=== PATIENT | male | born 1965 | race Caucasian/White ===

== ENCOUNTER 2017-03-22 10:33 | Emergency (ER) | payer OTHER, MEDICAID ==
[~2017-03-22] VITALS: Ht 182.9 cm; Wt 90.0 kg
[2017-03-22] MEDS ORDERED: SODIUM CHLORIDE 0.9% 1,000 ML IV ONE (11:03)
[2017-03-22] MEDS ORDERED: FAMOTIDINE 20MG/2ML VIAL IV ONE (11:15)
[2017-03-22] MEDS ORDERED: ONDANSETRON HCL 4MG/2ML VIAL IV ONE (11:15)
[2017-03-22 11:27] LABS: BASOPHILS % 0.5 % (0.0-2.0); EOSINOPHILS % 0.2 % (0.0-5.0); HEMATOCRIT. 44.6 % (42.0-52.0); HEMOGLOBIN. 15.5 g/dL (14.0-18.0); MEAN CORPUSCULAR HEMOGLOBIN 30.5 pg (28.0-32.0); MEAN CORPUSCULAR VOLUME 87.8 fL (80.0-94.0); MEAN PLATELET VOLUME 7.2 fl (7.4-10.4); MONOCYTES % 7.1 % (2.0-8.0); NEUTROPHILS % 78.2 % (40.0-76.0); PLATELET 311 x1000/uL (130-400); RED BLOOD CELL COUNT 5.08 mill/uL (4.7-6.1); RED CELL DISTRIBUTION WIDTH 13.7 % (11.6-14.6)
[2017-03-22 11:34] LABS: INR 1.1; PARTIAL THROMBOPLASTIN TIME 25.5 sec (24.0-34.0); PROTHROMBIN TIME 11.2 sec
[2017-03-22 11:39] LABS: CARBON DIOXIDE 24 mEq/L (21-32); CHLORIDE 103 mEq/L (98-107); ETHANOL BLOOD 17 mg/dL
[2017-03-22 17:41] LABS: *AMPHETAMINES SCREEN URINE NEGATIVE (NEGATIVE); *BARBITURATES SCREEN URINE NEGATIVE (NEGATIVE); *BENZODIAZEPINES SCREEN URINE NEGATIVE (NEGATIVE); *COCAINE SCREEN URINE NEGATIVE (NEGATIVE); CANNABINOID URINE SCREEN NEGATIVE (NEGATIVE); METHADONE URINE SCREEN NEGATIVE (NEGATIVE); OPIATES URINE SCREEN NEGATIVE (NEGATIVE); PHENCYCLIDINE URINE SCREEN NEGATIVE (NEGATIVE)
[2017-03-23 15:06] VITALS: BP 117/68
== END 2017-03-23 16:12 ==
LOC: ER 10:53
DX: F10.10 Alcohol abuse, uncomplicated (principal); K29.70 Gastritis, unspecified, without bleeding; R45.851 Suicidal ideations; F32.9 Major depressive disorder, single episode, unspecified; F20.9 Schizophrenia, unspecified
CPT/HCPCS: 36415; 71010; 80053; 80305; 80307; 80329; 83690; 85025; 85610; 85730; 96374; 96375; 99285; G0482; J2405; J3490; J7030; A4315